=== PATIENT | female | born 1950 | race Caucasian/White ===

== ENCOUNTER 2016-07-03 04:35 | Emergency (ER) | payer MEDICARE, OTHER ==
--- NOTE | ~2016-07-03 | CT71 ---
[facility] A Service of [facility] RADIOLOGY TEXT RESULTS PATIENT: SAE BRADSHAW LOCATION: [place] : 46 UNIT #: [id number] AGE: [address]: Jaymie Mcdaniels MD SEX: F ORDER DR: [id number] [address] [address] [id number] E MR#: [id number] Acc #: [id number] NAME: SAE BRADSHAW : 1950 SEX: F STUDY DATE/TIME: 07/03/2016 3:35 UNIT: [facility] ROOM: STUDY DESCRIPTION: CT Head Wo Contrast Attending Physician: Jaymie Mcdaniels M.D. Ordering Physician: Jaymie Mcdaniels M.D. Primary Care Physician: Primary Care Physician No MEDICAL IMAGING REPORT This report is preliminary unless electronic signature is present EXAM Noncontrast CT head 07/03/2016 HISTORY Migraine headache for 6 days. Vomiting. COMPARISON None. PROCEDURE This CT examination was performed with one or more of the following radiation dose reduction techniques: automatic exposure control, adjustment of mA and/or kV according to patient size, and iterative reconstruction. FINDINGS There is mild parenchymal atrophy with compensatory prominence of the ventricles and extraaxial spaces. No convincing CT evidence of acute or evolving infarct. No mass lesion, mass effect, or midline shift is seen. Mucous retention cyst or polyp is seen within the left maxillary sinus. The nasal bone is deviated to the right of midline which appears to be a chronic finding. Mild intracranial carotid artery calcifications are present. IMPRESSION 1. No acute intracranial findings. 2. Mild atrophy. Dictated by... Marianela Flaherty M.D. THIS IS AN ELECTRONICALLY VERIFIED REPORT [facility] A Service of [facility] RADIOLOGY TEXT RESULTS PATIENT: SAE BRADSHAW LOCATION: [place] : 46 UNIT #: [id number] AGE: [address]: Jaymie Mcdaniels MD SEX: F ORDER DR: Marianela Flaherty M.D. at 07/03/2016 9:58 PM REMY/augie TD: 07/03/2016 05:56 JOB #: [id number] MEDICAL IMAGING REPORT Page 1 of 1 COPY
== END 2016-07-03 04:54 | disposition home or self-care (01) ==
LOC: CED 04:35
DX: G43.909 Migraine, unspecified, not intractable, without status migrainosus (principal); R11.2 Nausea with vomiting, unspecified; I10 Essential (primary) hypertension; J45.909 Unspecified asthma, uncomplicated; Z98.890 Other specified postprocedural states; Z88.0 Allergy status to penicillin
CPT/HCPCS: 36415; 70450; 96361; 96374; 96375; 99284; J0780; J1200; J1885